=== PATIENT | male | born 1970 ===

== ENCOUNTER 2016-12-10 02:08 | Emergency (ER) | payer BC ==
[2016-12-10 02:36] VITALS: BP 138/91; PULSE 74; RESP 18; TEMP 99; O2SAT 98
[2016-12-10] MEDS ORDERED: Sodium Chloride 0.9% 1,000 ML IV STA (03:06)
[2016-12-10 03:25] LABS: BASO % 0.5 % (0.0-2.0); EOS # 0.1 K/uL (0.0-0.7); EOS % 0.8 % (0.0-4.0); HEMOGLOBIN 15.6 g/dL (12.0-18.0); LYMPH # 1.3 K/uL (1.0-4.3); MEAN CELL VOLUME 89.7 fl (80.0-94.0); MEAN CORPUSCULAR HEMOGLOBIN 31.7 pg (27.0-31.0); MEAN CORPUSCULAR HGB CONC 35.3 g/dL (33.0-37.0); MEAN PLATELET VOLUME 8.6 fl (7.2-11.7); MONO # 0.6 K/uL (0.0-0.8); MONO % 5.9 % (0.0-10.0); NEUT # 7.9 K/uL (1.8-7.0); NEUT % 79.8 % (50.0-75.0); NRBC % 0.2 % (0.0-0.0); RBC 4.92 Mil/uL (4.40-5.90); RED CELL DISTRIBUTION WIDTH 13.6 % (11.5-14.5); WHITE BLOOD COUNT 9.9 K/uL (4.8-10.8)
--- NOTE | 2016-12-10 03:34 | ED PDOC ---
HPI: Abdomen Time Seen by Provider: 12/10/16 02:41 Chief Complaint (Nursing): Abdominal Pain Chief Complaint (Provider): Abdominal Pain History Per: Patient History/Exam Limitations: no limitations Onset/Duration Of Symptoms: Hrs (Two ) Outside of [place] travel?: No Current Symptoms Are (Timing): Still Present Location Of Pain/Discomfort: RUQ Quality Of Discomfort: Sharp Associated Symptoms: denies: Fever, Nausea, Vomiting, Diarrhea, Chest Pain Additional Complaint(s): 46 y/o male presenting to the ED with abdominal pain for two hours. Patient reports acute right upper abdominal pain radiating to his back and describes the pain as sharp and constant. He denies nausea, vomiting, diarrhea, shortness of breath, or chest pain. Patients past medical history includes gastritis. Past Medical History Reviewed: Historical Data, Nursing Documentation, Vital Signs Vital Signs: Last Vital Signs Temp 99.0 F 12/10/16 02:31 Pulse 74 12/10/16 02:31 Resp 18 12/10/16 02:31 BP 138/91 H 12/10/16 02:31 Pulse Ox 98 12/10/16 03:39 - Medical History PMH: Gastritis - Surgical History Surgical History: No Surg Hx - Family History Family History: States: Unknown Family Hx - Social History Current smoker - smoking cessation education provided: No Alcohol: None Drugs: Denies - Home Medications Home Medications: Ambulatory Orders Medication Instructions Recorded traMADol [Ultram] 50 mg PO Q6 PRN #12 tab 12/10/16 - Allergies Allergies/Adverse Reactions: Allergies Allergy/AdvReac Type Severity Reaction Status Date / Time No Known Allergies Allergy Verified 12/10/16 02:30 Review of Systems ROS Statement: Except As Marked, All Systems Reviewed And Found Negative Cardiovascular: Negative for: Chest Pain Respiratory: Negative for: Shortness of Breath Gastrointestinal: Positive for: Abdominal Pain. Negative for: Vomiting, Diarrhea Physical Exam - Reviewed Nursing Documentation Reviewed: Yes Vital Signs Reviewed: Yes - Physical Exam Appears: Positive for: Non-toxic, Uncomfortable Head Exam: Positive for: ATRAUMATIC, NORMAL INSPECTION, NORMOCEPHALIC Skin: Positive for: Normal Color, Warm, Dry Neck: Positive for: Normal, Painless ROM, Supple Cardiovascular/Chest: Positive for: Regular Rate, Rhythm. Negative for: Murmur Respiratory: Positive for: Normal Breath Sounds. Negative for: Respiratory Distress Gastrointestinal/Abdominal: Positive for: Tenderness ((+)RUQ Tenderness, Christiansen' s sign ) Extremity: Positive for: Normal ROM Neurologic/Psych: Positive for: Alert, Oriented. Negative for: Motor/Sensory Deficits - Laboratory Results Result Diagrams: 12/10/16 03:19 12/10/16 03:19 - ECG O2 Sat by Pulse Oximetry: 98 (RA) Pulse Ox Interpretation: Normal Medical Decision Making Medical Decision Making: Time: 248 Initial impression: RUQ Pain Initial plan: --EKG --CMP --LIPASE --ED URINE DIPSTICK --EKG-ED --KETPRP;AC 10MG IV --SODIUM CHLORIDE 1,000 ML IV 1,000MLS/HR --HEPLOCK INSERTION IV --URINALYSIS --GALLBLADDER ULTRASOUND --0911 EXAM: US Abdomen Limited, Right Upper Quadrant CLINICAL HISTORY: 46 years old, male; Pain; Abdominal pain; Rebound pain; Right upper quadrant ( ruq); Additional info: Ruq pain TECHNIQUE: Real-time ultrasound of the right upper quadrant with image documentation. COMPARISON: No relevant prior studies available. FINDINGS: Liver: No acute findings. No mass. No intrahepatic bile duct dilation. Gallbladder: A large stone is detected within the gallbladder, along with dependent sludge. A positive sonographic Christiansen sign was detected by the instrument technologist. Common bile duct: No stones. No dilation. Pancreas: Visualization of the pancreas is limited by overlying bowel gas. Right kidney: No acute findings. No obstructing stones. No solid mass. No hydronephrosis. IMPRESSION: Large stone within the gallbladder, with a positive sonographic Christiansen's sign detected by the instrument technologist for which clinical (and serologic) correlation is needed. Limited evaluation of the pancreas, secondary to overlying bowel gas. --0430: Re-Evaluation/Discharge Instructions: Patient labs reviewed, no clinically significant abnormalities. Patient reports resolution of symptoms and is suitable for discharge. Patient instructed to follow up with PMD in 1-2 days. Patient also provided with lifestyle and dietary recommendations. --Discharge Instructions: Patient feels better. Discussed results and plan with patient who expresses understanding. Counseling was provided regarding the diagnosis and prognosis. All questions answered and there is agreement with the plan to discharge home with instructions. Patient stable for discharge. Return if symptoms persist or worsen. Scribe Attestation: Documented by Pinky Montilla, acting as a scribe for Virgil Patel MD. Scribe Attestation: All medical record entries made by the Scribe were at my direction and personally dictated by me. I have reviewed the chart and agree that the record accurately reflects my personal performance of the history, physical exam, medical decision making, and the department course for this patient. I have also personally directed, reviewed, and agree with the discharge instructions and disposition. Disposition - Clinical Impression Clinical Impression: Cholelithiasis - Patient ED Disposition Is Patient to be Admitted: No - Disposition Referrals: Jace Del Castillo MD [Primary Care Provider] - Disposition Time: 04:30 Condition: IMPROVED Prescriptions: traMADol [Ultram] 50 mg PO Q6 PRN #12 tab PRN Reason: abdominal pain/discomfort Instructions: Gallstones (ED) Forms: [facility] (Maltese) Print Language: MACEDONIAN
[2016-12-10 03:47] LABS: BLOOD UREA NITROGEN 12 mg/dl (9-20); GFR AFRICAN-AMERICAN > 60; GFR NON-AFRICAN AMERICAN > 60
[2016-12-10 03:48] LABS: ALB/GLOB RATIO 1.3 (1.0-2.1); ALBUMIN 4.2 g/dL (3.5-5.0); ALT/SGPT 13 U/L (21-72); AST/SGOT 22 U/L (17-59); CALCIUM 9.8 mg/dL (8.4-10.2); LIPASE 39 U/L (23-300)
--- NOTE | 2016-12-10 06:51 | US ---
HISTORY: RUQ pain COMPARISON: None. TECHNIQUE: Sonographic evaluation of the right upper quadrant of the abdomen. FINDINGS: LIVER: Measures 16.1 cm in length. Patent portal vein. Portal venous flow: Hepatopetal. Unremarkable echogenicity of the liver parenchyma. No mass. No intrahepatic bile duct dilatation. GALLBLADDER: Cholelithiasis, as gallbladder wall thickening, positive sonographic Christiansen sign consistent with acute cholecystitis. COMMON BILE DUCT: Measures 3.7 mm. No stones. No dilatation. PANCREAS: Obscured by overlying bowel gas. Non diagnostic assessment of the pancreas RIGHT KIDNEY: Measures 5.9 x 10.9 cm in length. Normal echogenicity. No calculus, mass, or hydronephrosis. AORTA: No aneurysmal dilatation. IVC: Unremarkable. OTHER FINDINGS: None . IMPRESSION: Cholelithiasis. There is sonographic evidence of acute cholecystitis. Limitations of the current examination: Nondiagnostic assessment of the pancreas obscured by overlying bowel gas.
== END 2016-12-10 04:45 | disposition home or self-care (01) ==
LOC: H.ER 02:08
DX: K80.00 Calculus of gallbladder with acute cholecystitis without obstruction (principal)
CPT/HCPCS: 76705; 80053; 83690; 85025; 96374; 99282; J1885; J7040